=== PATIENT | male | born 1985 ===

== ENCOUNTER 2017-01-02 23:24 | Inpatient (IN) | payer BC, OTHER ==
[~2017-01-02] VITALS: Ht 170.2 cm; Wt 65.8 kg
--- NOTE | 2017-01-02 23:22 | Emergency Room Report ---
History of Present Illness General Source: Patient, EMS Present Illness HPI Patient is a 31-year-old male presented after increased swelling and pain to his right upper extremity. Patient reports having prior history of IV drug use. Patient states that he had been using IV and had been noted to have increased pain and swelling to his right upper extremity as well as to his left leg and multiple other sites. Patient denies antibiotic allergies. He reported having increased pain. Allergies: Coded Allergies: No Known Allergies (Unverified , 01/02/17) Patient History Past Medical History: see triage record Reviewed Nursing Documentation: PMH: Agreed, PSxH: Agreed Review of Systems All Other Systems: negative except mentioned in HPI Physical Exam Sp02 EP Interpretation: reviewed, normal General Appearance: normal inspection, well appearing, no apparent distress, alert, GCS 15, non-toxic Head: atraumatic ENT: normal ENT inspection, hearing grossly normal, normal voice Neck: normal inspection, full range of motion, supple, no bony tend Respiratory: normal inspection, lungs clear, normal breath sounds, no respiratory distress, no retraction, no wheezing Cardiovascular #1: regular rate, rhythm, no edema Gastrointestinal: normal inspection, normal bowel sounds, non tender, soft, no guarding, no hernia Genitourinary: no CVA tenderness Musculoskeletal: normal inspection, back normal, normal range of motion, swelling - multiple skin abscesses Neurologic: normal inspection, alert, oriented x3, responsive, speech normal Psychiatric: normal inspection, judgement/insight normal, mood/affect normal Skin: other - multiple track kam and abscesses to right upper extremity, right shoulder, forearm, left knee Procedures Incision and Drainage Incision and Drainage : Consent: Written Site: left thigh, right shoulder, right forearm Blade Size: 15 I & D Procedure: betadine prep, sterile drapes applied Wound Location: upper extremity, lower extremity Wound's Depth, Shape: into muscle Wound Length (cm): 2 Anesthesia: Lidocaine w/ Epi Patient Tolerated: Well Complications: None Medical Decision Making Diagnostic Impression: Primary Impression: Abscess Additional Impression: Leukocytosis ER Course Patient presented for abscess. Differential diagnosis included was not limited to abscess, cellulitis, folliculitis,necrotizing fascitis. Because of complexity of patient's case laboratory testing and imaging studies were ordered. Patient's lab is notable for markedly altered white blood count. Patient was consented for incision and drainage. 3 different abscesses were incised and drained with drainage of large amount purulent material from each abscess. Patient was given IV antibiotics. He started on IV fluids.Patient presented multiple sites of infection which likely require further IV antibiotics. Patient was given IV antibiotic Labs Test 01/03/17 00:00 White Blood Count 21.5 K/UL (4.8-10.8) Red Blood Count 4.30 M/UL (4.70-6.10) Hemoglobin 12.8 G/DL (14.2-18.0) Hematocrit 36.7 % (42.0-52.0) Mean Corpuscular Volume 85 FL (80-99) Mean Corpuscular Hemoglobin 29.7 PG (27.0-31.0) Mean Corpuscular Hemoglobin Concent 34.8 G/DL (32.0-36.0) Red Cell Distribution Width 11.7 % (11.6-14.8) Platelet Count 390 K/UL (150-450) Mean Platelet Volume 5.9 FL (6.5-10.1) Neutrophils (%) (Auto) % (45.0-75.0) Lymphocytes (%) (Auto) % (20.0-45.0) Monocytes (%) (Auto) % (1.0-10.0) Eosinophils (%) (Auto) % (0.0-3.0) Basophils (%) (Auto) % (0.0-2.0) Differential Total Cells Counted 100 Neutrophils % (Manual) 79 % (45-75) Lymphocytes % (Manual) 10 % (20-45) Monocytes % (Manual) 6 % (1-10) Eosinophils % (Manual) 2 % (0-3) Basophils % (Manual) 0 % (0-2) Band Neutrophils 3 % (0-8) Platelet Estimate Adequate Platelet Morphology Normal Red Blood Cell Morphology Normal Sodium Level 134 mEQ/L (135-145) Potassium Level 4.2 mEQ/L (3.4-4.9) Chloride Level 93 mEQ/L (98-107) Carbon Dioxide Level 23 mEQ/L (20-30) Anion Gap 18 (5-15) Blood Urea Nitrogen 13 mg/dL (7-23) Creatinine 0.7 mg/dL (0.7-1.2) Estimat Glomerular Filtration Rate > 60 mL/min (>60) Glucose Level 108 mg/dL (74-106) Calcium Level 9.0 mg/dL (8.6-10.2) Total Bilirubin 0.6 mg/dL (0.0-1.2) Aspartate Amino Transf (AST/SGOT) 13 U/L (5-40) Alanine Aminotransferase (ALT/SGPT) 10 U/L (3-41) Alkaline Phosphatase 125 U/L (40-129) Total Protein 7.3 g/dL (6.6-8.7) Albumin 3.6 g/dL (3.5-5.2) Globulin 3.7 g/dL Albumin/Globulin Ratio 0.9 (1.0-2.7) Chest X-Ray Diagnostic Results Chest X-Ray Ordered: No Status: improved Disposition: ADMITTED INPATIENT Condition: Segundo Lane Jan 02, 2017 23:22
[2017-01-02 23:30] VITALS: BP 130/80
[2017-01-02] MEDS ORDERED: Ampicillin/Sulbactam Sod 3 GM in NS 110 ML IVPB ONE (23:30)
[2017-01-02] MEDS ORDERED: Vancomycin 1 GM in D5W 275 ML IVPB ONE (23:30)
[2017-01-02] MEDS ORDERED: Lidocaine 2% 20mg/ml/Epi 0.005mg/ml 20ml vial INJ ONE (23:45)
[2017-01-03] VITALS (10 sets, daily range): BP systolic 108–133; BP diastolic 62–81
[2017-01-03] MEDS ORDERED: Unasyn 3gm Inj ONE (00:08)
[2017-01-03 00:42] LABS: MEAN CORPUSCULAR HEMOGLOBIN 29.7 PG (27.0-31.0); MEAN CORPUSCULAR HGB CONC 34.8 G/DL (32.0-36.0); MEAN CORPUSCULAR VOLUME 85 FL (80-99); MEAN PLATELET VOLUME 5.9 FL (6.5-10.1); PLATELET COUNT 390 K/UL (150-450); RED CELL DISTRIBUTION WIDTH 11.7 % (11.6-14.8); WHITE BLOOD COUNT 21.5 K/UL (4.8-10.8)
[2017-01-03] MEDS ORDERED: Vancomycin 1gm inj IVPB ONE (00:57)
[2017-01-03 01:02] LABS: ALANINE AMINOTRANSFERASE 10 U/L (3-41); ALBUMIN/GLOBULIN RATIO 0.9 (1.0-2.7); ANION GAP 18 (5-15); ASPARTATE AMINO TRANSFERASE 13 U/L (5-40); CARBON DIOXIDE 23 mEQ/L (20-30); CHLORIDE 93 mEQ/L (98-107); CREATININE 0.7 mg/dL (0.7-1.2); GLOMERULAR FILTRATION RATE > 60 mL/min (>60); HEMOLYSIS 3; POTASSIUM 4.2 mEQ/L (3.4-4.9); SODIUM 134 mEQ/L (135-145); TOTAL PROTEIN 7.3 g/dL (6.6-8.7)
[2017-01-03 01:13] LABS: BAND NEUTROPHILS % (MANUAL) 3 % (0-8); BASOPHILS % (MANUAL) 0 % (0-2); EOSINOPHILS % (MANUAL) 2 % (0-3); LYMPHOCYTES % (MANUAL) 10 % (20-45); NEUTROPHILS % (MANUAL) 79 % (45-75); PLATELET ESTIMATE ADEQUATE; TOTAL CELLS COUNTED 100
[2017-01-03 01:14] LABS: PLATELET MORPHOLOGY NORMAL
--- NOTE | 2017-01-03 08:54 | History & Physical ---
History and Physical History & Physicial seen and examined. Dictation completed Joe Marcelo MD Jan 03, 2017 08:54
[2017-01-03 11:18] LABS: HEMOGLOBIN A1C 5.4 % (< 6.0)
[2017-01-03 11:20] LABS: CHOLESTEROL/HDL RATIO 4.4 (3.3-4.4)
[2017-01-03 11:30] LABS: THYROID STIMULATING HORMONE 1.16 uIU/mL (0.300-4.500)
[2017-01-03] MEDS: Vancomycin 1250mg/D5W 275ml IVPB SCH ×4 (13:27→23:37)
[2017-01-03] MEDS: Ampicillin/Sulbactam Sod 3 GM in NS 110 ML IVPB SCH ×2 (14:55→20:27)
--- NOTE | 2017-01-03 15:00 | History and Physical Report ---
DATE OF ADMISSION: 01/02/2017 SOURCE OF INFORMATION: The patient and EMR. HISTORY OF PRESENT ILLNESS: The patient is a pleasant 31-year-old, homeless young male. The patient reported that after appearance of couple of abrasions over the skin and history of possible IV drug abuse has noticed a couple of losing abscesses appeared on the right arm and left lower extremity. The patient denies any severe pain. The patient denies any warmness on the extremities. Denies any sensory or motor problems in these extremities. PAST SURGICAL HISTORY: Denies. OUTPATIENT MEDICATION: Denies. ALLERGIES: NKDA. SOCIAL HISTORY: Positive for prior history of the heroin abuse. Status post failed rehabilitation attempt single. Denies alcohol abuse or tobacco abuse. FAMILY HISTORY: Denies. REVIEW OF SYSTEMS: All 12 elements of review of systems reviewed. The patient positive pertinent and negatives reported as above. PHYSICAL EXAMINATION: VITAL SIGNS: Blood pressure 120/70, temperature 98.2 degrees, pulse oximetry 98% on room air, and respiratory rate is 18-22. HEENT: Head and neck, atraumatic and normocephalic. CHEST: Clear to auscultation. HEART: S1 and S2. Regular rate and rhythm. ABDOMEN: Soft. No organomegaly. NEUROLOGIC: The patient is awake, alert and oriented x3. MUSCULOSKELETAL: Positive for multiple superficial abrasions in addition to 3 sites of excision, status post drainage and appropriate dressing two on the right upper extremity and one on the left thigh. LABORATORY DATA: WBC 21.5, hemoglobin 12.8, and platelets 390,000. Sodium 134, potassium 4.2, BUN 13, and creatinine 0.7. ASSESSMENT: 1. Sepsis. 2. Multiple soft tissue abscesses. 3. History of intravenous drug abuse. 4. Home less nurse/social issues. 5. Gastrointestinal and deep vein thrombosis prophylaxes. PLAN OF CARE: Continue with the current intravenous antibiotics vancomycin and Unasyn. We will obtain the ultrasound duplex of the right upper and left lower extremity. We will check the HIV status. Infectious Disease, Dr. Apodaca, has been notified. Joe Marcelo M.D. DR: Jazmin JOB#: [id number] CC:
--- NOTE | 2017-01-03 18:09 | Consultation ---
Consult Note Consult Note ID CONSULT: Perla# [id number] Assessment/Plan ASSESSMENT: 31 y/o male with: // Multiple skin abscesses r/o bacteremia, endocarditis - SP I&D left thigh, right shoulder, right forearm 01/02 - blood cultures pending // Sepsis // Leukocytosis // Low grade fever x1 // IVDA - last use 2 weeks ago - hepatitis panel: pending - negative: HIV // Homelessness // NKDA // Full Code PLAN: - continue IV vancomycin, unasyn d# 1, transition to PO alternative soon if no evidence of bacteremia or endocarditis - check TTE - f/u cultures - f/u hepatitis panel - f/u doppler - monitor CBC, temperatures - monitor BMP - wound care Thanks! Will follow JACKLYN DE Jan 03, 2017 18:09
[2017-01-04] VITALS: BP 118/64
--- NOTE | 2017-01-04 01:30 | Consultation ---
DATE OF CONSULTATION: 01/03/2017 INFECTIOUS DISEASE CONSULTATION CONSULTING PHYSICIAN: Rafael Vang M.D. REQUESTING PHYSICIAN: Joe Marcelo M.D. REASON FOR CONSULTATION: Multiple abscess. HISTORY OF PRESENT ILLNESS: This is a 31-year-old male, intravenous drug abuser, admitted on 01/02/2017 with multiple cutaneous abscesses. The patient had incision and drainage of left thigh, right shoulder and right forearm abscesses. The cultures did not appear to have been sent. Blood cultures are pending. He meets sepsis criteria with leukocytosis and low-grade fevers. He has been started on empiric IV vancomycin and Unasyn and ID now consulted to assist in management. PAST MEDICAL HISTORY: None. PAST SURGICAL HISTORY: Previous incision and drainage. ALLERGIES: No known drug allergies. MEDICATIONS: 1. Intravenous vancomycin day #1. 2. Intravenous Unasyn day #1. 3. Protonix. FAMILY HISTORY: Noncontributory. SOCIAL HISTORY: The patient is homeless and has had history of intravenous heroin use. He states the last use was two weeks ago. REVIEW OF SYSTEMS: As per history of present illness. Ten systems reviewed. All pertinent positives and negatives noted. PHYSICAL EXAMINATION: VITAL SIGNS: Maximum temperature 100.5 degrees, blood pressure 116/66, heart rate in the 80s, respiratory rate 19, and saturating 97% on room air. GENERAL: No apparent distress. Nontoxic appearing. HEENT: No thrush. CARDIOVASCULAR: Regular rate and rhythm. No murmurs. PULMONARY: Clear to auscultation bilaterally. ABDOMEN: Bowel sounds present. Soft, nondistended, and nontender. EXTREMITIES: Right upper extremity edema. Multiple abscesses with pustular drainage and documented elsewhere. NEUROLOGICAL: Alert and oriented x3, nonfocal. LABORATORY DATA: White blood cell count 21.5 with left shift, hemoglobin 12.8, and platelets 390,000. Sodium 134, potassium 4.2, chloride 93, bicarbonate 23, BUN 13, and creatinine 0.7. Hemoglobin A1c is 5.4%. Liver function tests within normal limits. Negative human immunodeficiency virus. Hepatitis panel is pending. MICROBIOLOGY: On 01/02/2017, blood culture pending. IMAGING: Doppler ultrasound is pending. ASSESSMENT: 1. Multiple skin abscesses. Rule out bacteremia and endocarditis. He is status post incision and drainage of left thigh, right shoulder and right forearm on 01/02/2017. Blood cultures are pending. 2. Sepsis. 3. Leukocytosis. 4. Low-grade fever. 5. Intravenous drug abuse was reported last use two weeks ago. Hepatitis panel is pending and human immunodeficiency virus is negative. 6. Homelessness. 7. No known drug allergies. 8. Full Code. PLAN: 1. Continue IV vancomycin and Unasyn day #1 and transition to oral alternatives and if no evidence of bacteremia or endocarditis. 2. Check echocardiogram. 3. Follow up cultures. 4. Follow up hepatitis panel. 5. Follow up Doppler ultrasound. 6. Monitor CBC and temperatures. 7. Monitor BMP. 8. Wound care. Thank you. We will follow. Rafael Vang M.D. DR: DOMINGUEZ JOB#: [id number] CC: Joe Marcelo M.D.; Fax#: [phone] Frazier M.D; Fax#: [phone]
[2017-01-04] MEDS: Ampicillin/Sulbactam Sod 3 GM in NS 110 ML IVPB SCH ×4 (01:36→18:42)
[2017-01-04 04:00] VITALS: BP 118/73
[2017-01-04 07:39] LABS: BASOPHILS % (AUTO) 0.8 % (0.0-2.0); EOSINOPHILS % (AUTO) 3.1 % (0.0-3.0); LYMPHOCYTES % (AUTO) 16.3 % (20.0-45.0); MEAN CORPUSCULAR HEMOGLOBIN 29.3 PG (27.0-31.0); MEAN CORPUSCULAR HGB CONC 33.2 G/DL (32.0-36.0); MEAN CORPUSCULAR VOLUME 88 FL (80-99); MEAN PLATELET VOLUME 6.2 FL (6.5-10.1); NEUTROPHILS % (AUTO) 71.7 % (45.0-75.0); PLATELET COUNT 445 K/UL (150-450); RED BLOOD COUNT 4.31 M/UL (4.70-6.10); RED CELL DISTRIBUTION WIDTH 12.2 % (11.6-14.8); WHITE BLOOD COUNT 14.8 K/UL (4.8-10.8)
[2017-01-04 07:56] LABS: ALANINE AMINOTRANSFERASE 11 U/L (3-41); ALBUMIN/GLOBULIN RATIO 0.9 (1.0-2.7); ANION GAP 17 (5-15); ASPARTATE AMINO TRANSFERASE 16 U/L (5-40); CALCIUM 9.4 mg/dL (8.6-10.2); CARBON DIOXIDE 25 mEQ/L (20-30); CHLORIDE 93 mEQ/L (98-107); GLOMERULAR FILTRATION RATE > 60 mL/min (>60); HEMOLYSIS 3; POTASSIUM 4.1 mEQ/L (3.4-4.9); SODIUM 135 mEQ/L (135-145); TOTAL PROTEIN 7.3 g/dL (6.6-8.7)
[2017-01-04 08:00] VITALS: BP 118/73
--- NOTE | 2017-01-04 10:25 | Infectious Diseases Prog Note ---
Assessment/Plan Assessment/Plan A: Sepsis Multiple Abscess IV drug abuse Homeless P; continue Vancomycin & Unasyn Subjective ROS Limited/Unobtainable: No Respiratory: Reports: no symptoms Gastrointestinal/Abdominal: Reports: no symptoms Genitourinary: Reports: no symptoms Musculoskeletal: Reports: pain Allergies: Coded Allergies: No Known Allergies (Unverified , 01/02/17) Objective Vital Signs Last 24 Hour Vital Signs Date Time Temp Pulse Resp B/P Pulse Ox O2 Delivery O2 Flow Rate FiO2 01/04/17 08:00 97.9 97 19 118/73 100 Room Air 01/04/17 08:00 97.9 97 19 118/73 100 Room Air 01/04/17 04:00 98.6 89 20 118/73 100 Room Air 01/04/17 00:00 98.1 90 20 118/64 100 Room Air 01/03/17 21:00 98.2 89 20 119/63 100 Room Air 01/03/17 20:00 98.2 90 20 116/65 100 Room Air 01/03/17 15:21 97.9 84 19 116/66 97 Room Air 01/03/17 11:59 98.1 85 18 116/66 100 Room Air Height (Feet): 5 Height (Inches): 7.00 Weight (Pounds): 145 General Appearance: no acute distress HEENT: mucous membranes moist Respiratory/Chest: lungs clear Cardiovascular: normal rate Abdomen: soft, non tender Extremities: no edema Skin: other - multiple opened abscess in right arm & left thigh Neurologic/Psychiatric: alert, oriented x 3, responsive Microbiology Date/Time Source Procedure Growth Status 01/03/17 00:05 Blood Blood Culture - Preliminary NO GROWTH AFTER 24 HOURS Resulted 01/03/17 00:00 Blood Blood Culture - Preliminary NO GROWTH AFTER 24 HOURS Resulted Laboratory Tests Test 01/03/17 10:30 01/04/17 06:20 Hemoglobin A1c 5.4 % (< 6.0) Triglycerides Level 86 mg/dL (< 150) Cholesterol Level 106 mg/dL (< 200) LDL Cholesterol 65 mg/dL (60-99) HDL Cholesterol 24 mg/dL (> 60) Cholesterol/HDL Ratio 4.4 (3.3-4.4) Thyroid Stimulating Hormone (TSH) 1.160 uIU/mL (0.300-4.500) Hepatitis A IgM Antibody Pending Hepatitis B Surface Antigen Pending Hepatitis B Core IgM Antibody Pending Hepatitis C Antibody Pending HIV (1&2) Antibody Rapid Negative (NEGATIVE) White Blood Count 14.8 K/UL (4.8-10.8) H Red Blood Count 4.31 M/UL (4.70-6.10) L Hemoglobin 12.6 G/DL (14.2-18.0) L Hematocrit 38.1 % (42.0-52.0) L Mean Corpuscular Volume 88 FL (80-99) Mean Corpuscular Hemoglobin 29.3 PG (27.0-31.0) Mean Corpuscular Hemoglobin Concent 33.2 G/DL (32.0-36.0) Red Cell Distribution Width 12.2 % (11.6-14.8) Platelet Count 445 K/UL (150-450) Mean Platelet Volume 6.2 FL (6.5-10.1) L Neutrophils (%) (Auto) 71.7 % (45.0-75.0) Lymphocytes (%) (Auto) 16.3 % (20.0-45.0) L Monocytes (%) (Auto) 8.0 % (1.0-10.0) Eosinophils (%) (Auto) 3.1 % (0.0-3.0) H Basophils (%) (Auto) 0.8 % (0.0-2.0) Sodium Level 135 mEQ/L (135-145) Potassium Level 4.1 mEQ/L (3.4-4.9) Chloride Level 93 mEQ/L (98-107) L Carbon Dioxide Level 25 mEQ/L (20-30) Anion Gap 17 (5-15) H Blood Urea Nitrogen 21 mg/dL (7-23) Creatinine 1.0 mg/dL (0.7-1.2) Estimat Glomerular Filtration Rate > 60 mL/min (>60) Glucose Level 92 mg/dL (74-106) Calcium Level 9.4 mg/dL (8.6-10.2) Total Bilirubin 0.5 mg/dL (0.0-1.2) Aspartate Amino Transf (AST/SGOT) 16 U/L (5-40) Alanine Aminotransferase (ALT/SGPT) 11 U/L (3-41) Alkaline Phosphatase 103 U/L (40-129) Total Protein 7.3 g/dL (6.6-8.7) Albumin 3.5 g/dL (3.5-5.2) Globulin 3.8 g/dL Albumin/Globulin Ratio 0.9 (1.0-2.7) L Current Medications Medications (Trade) Dose Ordered Sig/Tiffanie Route PRN Reason Start Time Stop Time Status Last Admin Dose Admin Acetaminophen (Tylenol) 650 mg Q4H PRN ORAL Mild Pain/Temp > 100.5 01/03/17 18:15 02/02/17 18:14 Ampicillin Sodium/ Sulbactam Sodium/ Sodium Chloride (Unasyn/Sodium Chloride) 110 ml @ 220 mls/hr Q6H IVPB 01/03/17 13:00 01/10/17 12:59 01/04/17 06:23 Pantoprazole 40 mg 40 mg DAILY ORAL 01/03/17 09:00 02/02/17 08:59 01/04/17 09:55 Vancomycin HCl (Vanco rx to dose) 1 ea DAILY PRN MISC Per rx protocol 01/03/17 08:45 02/02/17 08:44 Vancomycin HCl 1.25 gm/Dextrose 275 ml @ 183.333 mls/hr Q12HR@1100,2300 IVPB 01/03/17 11:00 01/08/17 10:59 01/03/17 23:37 DARRELL GIRALDO Jan 04, 2017 10:25
[2017-01-04] MEDS: Vancomycin 1250mg/D5W 275ml IVPB SCH ×4 (11:21→23:11)
[2017-01-04 12:06] VITALS: BP 123/74
--- NOTE | 2017-01-04 13:09 | General Progress Note ---
Assessment/Plan Status: stable Assessment/Plan 1. Sepsis. 2. Multiple soft tissue abscesses. 3. History of intravenous drug abuse. 4. Home less nurse/social issues. Plan: current antibiotic pending echo once clear by ID, may followup as out patient to complete antibiotic regimen. SW consulted Subjective ROS Limited/Unobtainable: No Constitutional: Reports: no symptoms HEENT: Reports: no symptoms Cardiovascular: Reports: no symptoms Respiratory: Reports: no symptoms Allergies: Coded Allergies: No Known Allergies (Unverified , 01/02/17) Objective Last 24 Hour Vital Signs Date Time Temp Pulse Resp B/P Pulse Ox O2 Delivery O2 Flow Rate FiO2 01/04/17 12:06 97.0 91 18 123/74 Room Air 01/04/17 08:00 97.9 97 19 118/73 100 Room Air 01/04/17 08:00 97.9 97 19 118/73 100 Room Air 01/04/17 04:00 98.6 89 20 118/73 100 Room Air 01/04/17 00:00 98.1 90 20 118/64 100 Room Air 01/03/17 21:00 98.2 89 20 119/63 100 Room Air 01/03/17 20:00 98.2 90 20 116/65 100 Room Air 01/03/17 15:21 97.9 84 19 116/66 97 Room Air Intake and Output 01/03/17 01/04/17 19:00 07:00 Intake Total 985.000 ml 495.000 ml Balance 985.000 ml 495.000 ml Intake Oral 600 ml IV Total 385.000 ml 495.000 ml # Voids 6 # Bowel Movements 1 1 Laboratory Tests 01/04/17 06:20: White Blood Count 14.8H, Red Blood Count 4.31L, Hemoglobin 12.6L, Hematocrit 38.1L, Mean Corpuscular Volume 88, Mean Corpuscular Hemoglobin 29.3, Mean Corpuscular Hemoglobin Concent 33.2, Red Cell Distribution Width 12.2, Platelet Count 445, Mean Platelet Volume 6.2L, Neutrophils (%) (Auto) 71.7, Lymphocytes ( %) (Auto) 16.3L, Monocytes (%) (Auto) 8.0, Eosinophils (%) (Auto) 3.1H, Basophils (%) (Auto) 0.8, Sodium Level 135, Potassium Level 4.1, Chloride Level 93L, Carbon Dioxide Level 25, Anion Gap 17H, Blood Urea Nitrogen 21, Creatinine 1.0, Estimat Glomerular Filtration Rate > 60, Glucose Level 92, Calcium Level 9.4, Total Bilirubin 0.5, Aspartate Amino Transf (AST/SGOT) 16, Alanine Aminotransferase (ALT/SGPT) 11, Alkaline Phosphatase 103, Total Protein 7.3, Albumin 3.5, Globulin 3.8, Albumin/Globulin Ratio 0.9L Height (Feet): 5 Height (Inches): 7.00 Weight (Pounds): 145 General Appearance: no apparent distress EENT: PERRL/EOMI Neck: supple Cardiovascular: normal rate Respiratory/Chest: lungs clear Abdomen: soft Extremities: other - sited of I+D noted. appropriatedly dressed Neurologic: anesthesiology fellow II-XII grossly normal Joe Marcelo MD Jan 04, 2017 13:09
[2017-01-04 16:00] VITALS: BP 111/58
[2017-01-04] MEDS ORDERED: Tubing IV Secondary IV ONE (18:44)
[2017-01-04] MEDS ORDERED: NS 275ml ONE (18:44)
[2017-01-04 20:00] VITALS: BP 148/68
[2017-01-05] VITALS: BP 113/68
[2017-01-05] MEDS: Ampicillin/Sulbactam Sod 3 GM in NS 110 ML IVPB SCH ×3 (01:05→13:37)
[2017-01-05 04:00] VITALS: BP 112/73
[2017-01-05 07:17] LABS: BASOPHILS % (AUTO) 0.7 % (0.0-2.0); EOSINOPHILS % (AUTO) 3.9 % (0.0-3.0); MEAN CORPUSCULAR HEMOGLOBIN 30.4 PG (27.0-31.0); MEAN CORPUSCULAR HGB CONC 34.6 G/DL (32.0-36.0); MEAN CORPUSCULAR VOLUME 88 FL (80-99); MONOCYTES % (AUTO) 7.2 % (1.0-10.0); NEUTROPHILS % (AUTO) 67.2 % (45.0-75.0); PLATELET COUNT 365 K/UL (150-450); RED BLOOD COUNT 4.17 M/UL (4.70-6.10); RED CELL DISTRIBUTION WIDTH 12.1 % (11.6-14.8)
[2017-01-05 08:13] VITALS: BP 128/74
--- NOTE | 2017-01-05 08:30 | Infectious Diseases Prog Note ---
Assessment/Plan Assessment/Plan ID CONSULT: Perla# [id number] Assessment/Plan ASSESSMENT: 31 y/o male with: // Multiple skin abscesses no evidence of bacteremia - SP I&D left thigh, right shoulder, right forearm 01/02 - blood cultures pending // Sepsis, SP // Leukocytosis improving // Low grade fever, SP // HIV : neg // IVDA - last use 2 weeks ago - hepatitis panel: pending - negative: HIV // Homelessness // NKDA // Full Code PLAN: - continue IV vancomycin, unasyn d# 3 transition to PO alternative soon if no evidence of bacteremia or endocarditis - check TTE - f/u cultures - f/u hepatitis panel - f/u doppler - monitor CBC, temperatures - monitor BMP - wound care Subjective Allergies: Coded Allergies: No Known Allergies (Unverified , 01/02/17) Subjective no new complain Objective Vital Signs Last 24 Hour Vital Signs Date Time Temp Pulse Resp B/P Pulse Ox O2 Delivery O2 Flow Rate FiO2 01/05/17 08:13 97.7 81 20 128/74 99 Room Air 01/05/17 04:00 98.2 68 18 112/73 100 Room Air 01/05/17 00:00 97.7 70 18 113/68 99 Room Air 01/04/17 20:00 97.5 84 20 148/68 100 Room Air 01/04/17 20:00 97.5 84 20 148/68 100 Room Air 01/04/17 16:00 98.1 74 18 111/58 Room Air 01/04/17 12:06 97.0 91 18 123/74 Room Air Height (Feet): 5 Height (Inches): 7.00 Weight (Pounds): 145 HEENT: anicteric Respiratory/Chest: normal breath sounds Cardiovascular: normal rate Abdomen: non distended Microbiology Date/Time Source Procedure Growth Status 01/03/17 00:05 Blood Blood Culture - Preliminary NO GROWTH AFTER 24 HOURS Resulted 01/03/17 00:00 Blood Blood Culture - Preliminary NO GROWTH AFTER 24 HOURS Resulted 01/03/17 11:00 Nasal Nares MRSA Culture - Final Staphylococcus Aureus - Mrsa Complete 01/03/17 11:00 Rectum VRE Culture - Final NO VANCOMYCIN RESISTANT ENTEROCOCCUS ... Complete Laboratory Tests Test 01/04/17 21:45 01/05/17 05:15 Vancomycin Level Trough 13.5 ug/mL (5.0-12.0) H White Blood Count 11.0 K/UL (4.8-10.8) H Red Blood Count 4.17 M/UL (4.70-6.10) L Hemoglobin 12.6 G/DL (14.2-18.0) L Hematocrit 36.6 % (42.0-52.0) L Mean Corpuscular Volume 88 FL (80-99) Mean Corpuscular Hemoglobin 30.4 PG (27.0-31.0) Mean Corpuscular Hemoglobin Concent 34.6 G/DL (32.0-36.0) Red Cell Distribution Width 12.1 % (11.6-14.8) Platelet Count 365 K/UL (150-450) Mean Platelet Volume 6.0 FL (6.5-10.1) L Neutrophils (%) (Auto) 67.2 % (45.0-75.0) Lymphocytes (%) (Auto) 21.0 % (20.0-45.0) Monocytes (%) (Auto) 7.2 % (1.0-10.0) Eosinophils (%) (Auto) 3.9 % (0.0-3.0) H Basophils (%) (Auto) 0.7 % (0.0-2.0) Sodium Level Pending Potassium Level Pending Chloride Level Pending Carbon Dioxide Level Pending Blood Urea Nitrogen Pending Creatinine Pending Estimat Glomerular Filtration Rate Pending Glucose Level Pending Calcium Level Pending Total Bilirubin Pending Aspartate Amino Transf (AST/SGOT) Pending Alanine Aminotransferase (ALT/SGPT) Pending Alkaline Phosphatase Pending Total Protein Pending Albumin Pending Globulin Pending Current Medications Medications (Trade) Dose Ordered Sig/Tiffanie Route PRN Reason Start Time Stop Time Status Last Admin Dose Admin Acetaminophen (Tylenol) 650 mg Q4H PRN ORAL Mild Pain/Temp > 100.5 01/03/17 18:15 02/02/17 18:14 01/04/17 13:31 Ampicillin Sodium/ Sulbactam Sodium/ Sodium Chloride (Unasyn/Sodium Chloride) 110 ml @ 220 mls/hr Q6H IVPB 01/03/17 13:00 01/10/17 12:59 01/05/17 06:07 Pantoprazole 40 mg 40 mg DAILY ORAL 01/03/17 09:00 02/02/17 08:59 01/04/17 09:55 Vancomycin HCl (Vanco rx to dose) 1 ea DAILY PRN MISC Per rx protocol 01/03/17 08:45 02/02/17 08:44 Vancomycin HCl 1.25 gm/Dextrose 275 ml @ 183.333 mls/hr Q12HR@1100,2300 IVPB 01/03/17 11:00 01/08/17 10:59 01/04/17 23:11 DAVION AMARAL M.D. Jan 05, 2017 08:29
[2017-01-05 08:40] LABS: ALANINE AMINOTRANSFERASE 9 U/L (3-41); ANION GAP 16 (5-15); ASPARTATE AMINO TRANSFERASE 13 U/L (5-40); CALCIUM 9.1 mg/dL (8.6-10.2); CARBON DIOXIDE 25 mEQ/L (20-30); CHLORIDE 99 mEQ/L (98-107); CREATININE 0.7 mg/dL (0.7-1.2); GLOMERULAR FILTRATION RATE > 60 mL/min (>60); HEMOLYSIS 2; POTASSIUM 4.3 mEQ/L (3.4-4.9); SODIUM 140 mEQ/L (135-145); TOTAL PROTEIN 6.8 g/dL (6.6-8.7)
--- NOTE | 2017-01-05 09:11 | Cardiology Report ---
APPROVED REPORT EXAM: Two-dimensional and M-mode echocardiogram with Doppler and color Doppler. INDICATION Endocarditis M-Mode DIMENSIONS IVSd0.5 (0.7-1.1cm)Left Atrium (MM)3.1 (1.6-4.0cm) LVDd3.4 (3.5-5.6cm)Aortic Root2.5 (2.0-3.7cm) PWd0.7 (0.7-1.1cm)Aortic Cusp Exc.1.8 (1.5-2.0cm) LVDs2.1 (2.5-4.0cm) PWs0.8 cm Normal left ventricular chamber size, systolic function and wall motion. Left ventricular ejection fraction estimated to be 60-65%. No evidence of left ventricular hypertrophy. No evidence of pericardial fat or effusion. All other cardiac chamber sizes are within normal limits. Focal aortic valve sclerosis with adequate cusp excursion Thickened mitral valve leaflets with normal excursion. Mitral annulus and aortic root calcification. Pulmonic valve not well visualized. Normal tricuspid valve structure. IVC is normal in size with physiological collapse. No evidence of echo density seen on any valve leaflets (vegitation), Consider FLORINA if clinically indicated. A color flow and spectral Doppler study was performed and revealed: No aortic regurgitation. No mitral regurgitation. Normal left ventricular diastolic function. Trace tricuspid regurgitation. Tricuspid systolic velocities suggests peak right ventricular systolic pressure of 17 mmHg
--- NOTE | 2017-01-05 09:26 | General Progress Note ---
Assessment/Plan Status: stable Assessment/Plan 1. Sepsis. 2. Multiple soft tissue abscesses. 3. History of intravenous drug abuse. 4. Home less nurse/social issues. Plan: Ok to followup as out patient to complete antibiotic regimen. Subjective ROS Limited/Unobtainable: No Constitutional: Reports: no symptoms Allergies: Coded Allergies: No Known Allergies (Unverified , 01/02/17) Objective Last 24 Hour Vital Signs Date Time Temp Pulse Resp B/P Pulse Ox O2 Delivery O2 Flow Rate FiO2 01/05/17 08:13 97.7 81 20 128/74 99 Room Air 01/05/17 04:00 98.2 68 18 112/73 100 Room Air 01/05/17 00:00 97.7 70 18 113/68 99 Room Air 01/04/17 20:00 97.5 84 20 148/68 100 Room Air 01/04/17 20:00 97.5 84 20 148/68 100 Room Air 01/04/17 16:00 98.1 74 18 111/58 Room Air 01/04/17 12:06 97.0 91 18 123/74 Room Air Intake and Output 01/04/17 01/05/17 19:00 07:00 Intake Total 385.000 ml 605.000 ml Balance 385.000 ml 605.000 ml IV Total 385.000 ml 605.000 ml # Voids 1 Laboratory Tests 01/04/17 21:45: Vancomycin Level Trough 13.5H 01/05/17 05:15: White Blood Count 11.0H, Red Blood Count 4.17L, Hemoglobin 12.6L, Hematocrit 36.6L, Mean Corpuscular Volume 88, Mean Corpuscular Hemoglobin 30.4, Mean Corpuscular Hemoglobin Concent 34.6, Red Cell Distribution Width 12.1, Platelet Count 365, Mean Platelet Volume 6.0L, Neutrophils (%) (Auto) 67.2, Lymphocytes ( %) (Auto) 21.0, Monocytes (%) (Auto) 7.2, Eosinophils (%) (Auto) 3.9H, Basophils (%) (Auto) 0.7, Sodium Level 140, Potassium Level 4.3, Chloride Level 99, Carbon Dioxide Level 25, Anion Gap 16H, Blood Urea Nitrogen 11, Creatinine 0.7, Estimat Glomerular Filtration Rate > 60, Glucose Level 99, Calcium Level 9.1, Total Bilirubin 0.3, Aspartate Amino Transf (AST/SGOT) 13, Alanine Aminotransferase (ALT/SGPT) 9, Alkaline Phosphatase 87, Total Protein 6.8, Albumin 3.5, Globulin 3.3, Albumin/Globulin Ratio 1.0 Height (Feet): 5 Height (Inches): 7.00 Weight (Pounds): 145 General Appearance: no apparent distress EENT: PERRL/EOMI Neck: supple Cardiovascular: normal rate Respiratory/Chest: lungs clear Abdomen: soft Extremities: non-tender 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
[2017-01-05] MEDS: Vancomycin 1250mg/D5W 275ml IVPB SCH ×2 (10:58)
[2017-01-05 12:01] VITALS: BP 120/59
[2017-01-05 15:58] VITALS: BP 121/59
--- NOTE | 2017-01-06 08:40 | Discharge Summary ---
Discharge Summary Hospital Course Date of Admission Jan 03, 2017 at 02:22 Date of Discharge Jan 05, 2017 at 16:26 Admitting Diagnosis extremity abscesses, cellulitis HPI Scot Shell is a 31 year old male who was admitted on Jan 03, 2017 at 02:22 for Extremity Abscesses, Cellulitis Hospital Course dc summary #[id number] Discharge Condition Upon Discharge: stable Discharge Disposition Patient was discharged to Home () Discharge Diagnoses: Discharge Instructions Discharge Instructions Special Instructions I have been assigned to complete a D/C Summary on this account. I was not involved in the patient management Francisca Rizo NP ([place]) Jan 06, 2017 08:40
--- NOTE | 2017-01-06 12:55 | Diagnostic Imaging Report ---
APPROVED REPORT CPT Code: 92183 Comments Pain, IV drug abuse. RIGHT LEG: Common femoral artery waveform analysis is within normal limits at rest. Color duplex sonography reveals patency of the superficial femoral, popliteal and tibial arteries. There is no evidence of stenosis or occlusion within these segments. Doppler tibial artery waveform analysis is within normal limits. LEFT LEG: Common femoral artery waveform analysis is within normal limits at rest. Color duplex sonography reveals patency of the superficial femoral, popliteal and tibial arteries. There is no evidence of stenosis or occlusion within these segments. Doppler tibial artery waveform analysis is compatible with mild ischemia.
--- NOTE | 2017-01-06 23:30 | Discharge Summary 2 SIG ---
DATE OF ADMISSION: 01/03/2017 DATE OF DISCHARGE: 01/05/2017 The patient was admitted under Dr. Marcelo. REASON FOR ADMISSION: The patient is a 31-year-old male, with a history of intravenous drug abuse, presented to emergency department with increased swelling and pain in the right upper extremity. The patient reported he was using intravenous drugs and noted increased pain and swelling in the right upper extremity as well as the left leg and multiple other sites. The patient reported increasing pain, but the patient denied any antibiotic allergy. In the emergency room, workup revealed leukocytosis, WBC was 21.5 and low-grade fever of 100.5. In the emergency department, the patient undergone incision and drainage of three different abscesses including left eye, right shoulder, and right forearm with draining of large amount of the purulent drainage. The patient was started on IV fluids and broad-spectrum intravenous antibiotics and admitted for further management. ADMITTING DIAGNOSES: 1. Sepsis. 2. Multiple soft tissue abscesses 3. Status post incision and drainage of the left thigh, right shoulder, and right forearm abscesses. 4. History of intravenous drug abuse. 5. Homeless. HOSPITAL COURSE: The patient was admitted. ID consult was requested. The patient needed to be ruled out for endocarditis and bacteremia in lieu of history of intravenous drug abuse. Blood culture were negative. Echocardiogram revealed preserved ejection fracture of 60% to 65% and right ventricular systolic pressure of 17. No evidence of vegetation on Echo was seen. HIV status negative. Hepatitis panel negative. DVT and GI prophylaxes provided. Venous duplex of bilateral lower extremities with no evidence of acute DVT. Leukocytosis trending down. Prior to discharge, WBC- 11. No fevers. According to Infectious Disease recommendation ,the patient was stable to be discharged home on oral antibiotics: Cipro and Clindamycin. insole department worker seen the patient . The patient stated that he signed himself for a treatment program, but he was on the waiting list due to lack of the opening, that could accept his insurance at this time. insole department worker provided additional resources for inpatient programs and recommended AA meetings as outpatient to follow up until he can be accepted in any program. The patient reported that he was going to be going home to his cousin, [place] and will contact him when ready for discharge. The patient was counseled on abstinence from street drugs. FINAL DIAGNOSES: 1. Sepsis. 2. Multiple soft tissue abscesses. 3. Status post incision and drainage of left thigh, right shoulder, and right forearm abscesses. 4. History of intravenous drug abuse. 5. Homeless. DISCHARGE MEDICATIONS: Script for antibiotics provided by ID specialist ( Cipro and Clindamycin). DISCHARGE INSTRUCTIONS: The patient was discharged to his cousin. The patient was counseled on abstinence from street drugs and provided resources to sign up for drug rehabilitation program. Joe Marcelo M.D. I have been assigned to dictate discharge summary on this account and I was not involved in the patient's management. Francisca Herreraamsterdam memorial hospitalGia, N.P. DR: REBECCA JOB#: [id number] CC: ENEDINA
== END 2017-01-05 16:26 | disposition home or self-care (01) | DRG 720 ==
LOC: EDBD 23:24 → EMR 23:55 → 4E 01-03 02:22 → EDBEDREQ 01-03 03:37
PROC: 0Y9D0ZZ Drainage of Left Upper Leg, Open Approach (ICD-10-PCS; principal; 2017-01-03)
PROC: 0X920ZZ Drainage of Right Shoulder Region, Open Approach (ICD-10-PCS; 2017-01-03)
PROC: 0X980ZZ Drainage of Right Upper Arm, Open Approach (ICD-10-PCS; 2017-01-03)
DX: A41.9 Sepsis, unspecified organism (principal); L02.416 Cutaneous abscess of left lower limb; L02.818 Cutaneous abscess of other sites; Z59.0 Homelessness; F19.10 Other psychoactive substance abuse, uncomplicated; L02.413 Cutaneous abscess of right upper limb
CPT/HCPCS: 10060; 36415; 80053; 80061; 80202; 83036; 84443; 85007; 85025; 86703; 86705; 86709; 86803; 87040; 87081; 87340; 93306; 93925